=== PATIENT | female | born 2000 | race Caucasian/White ===

== ENCOUNTER → 2023-03-15 | Outpatient (CLI) | payer OTHER ==
[~2023-03-15] MED LIST: ISOVUE-300 61% 100ML VIAL As Ordered ONE; LIDOCAINE 1% MDV 20ML VIAL As Ordered ONE; TRIAMCINOLONE ACETONIDE SUSP 40MG/ML 1ML VIAL As Ordered ONE
[2023-03-15 15:57] VITALS: BP 110/60; O2SAT 100
[2023-03-15 16:55] VITALS: BP 116/58; O2SAT 100
== END ==
LOC: M RAD 14:51
PROVIDERS: ATTEND Physician Assistant Surgical
DX: S73.122A Ischiocapsular ligament sprain of left hip, initial encounter (principal); W18.30XA Fall on same level, unspecified, initial encounter; Y92.009 Unspecified place in unspecified non-institutional (private) residence as the place of occurrence of the external cause
CPT/HCPCS: 20610; 77002; J3301; Q9967

== ENCOUNTER → 2024-05-26 | Outpatient (REF) | LOC: M PLAIMG 08:35 | PROVIDERS: ATTEND Internal Medicine | DX: R07.9 Chest pain, unspecified (principal) ==